=== PATIENT | female | born 1965 | race Caucasian/White ===

== ENCOUNTER 2024-05-09 08:03 | Outpatient (CLI) | payer OTHER, SELFPAY | END 2024-05-09 08:04 | disposition home or self-care (01) | LOC: INJ CL 08:08 | PROVIDERS: PCP Nurse Practitioner Family; Visit Provider Family Medicine | DX: M54.16 Radiculopathy, lumbar region (principal); M51.36 Other intervertebral disc degeneration, lumbar region | CPT/HCPCS: 62323; J0702; Q9966 ==

== ENCOUNTER 2024-11-17 12:17 | Outpatient (CLI) | payer OTHER, SELFPAY | END 2024-11-17 12:18 | disposition home or self-care (01) | LOC: INJ CL 12:18 | PROVIDERS: PCP Nurse Practitioner Family; Visit Provider Family Medicine | DX: M54.16 Radiculopathy, lumbar region (principal); M51.369 Other intervertebral disc degeneration, lumbar region without mention of lumbar back pain or lower extremity pain | CPT/HCPCS: 62323; J0702; Q9966 ==